=== PATIENT | female | born 1975 | race Caucasian/White ===

== ENCOUNTER 2020-11-12 10:27 | Outpatient (CLI) | payer OTHER, SELFPAY | END 2020-11-12 10:28 | disposition home or self-care (01) | LOC: ANHSURGERY 10:33 | PROVIDERS: PCP Nurse Practitioner Adult Health; Visit Provider Urology | DX: Z01.812 Encounter for preprocedural laboratory examination (principal); N93.9 Abnormal uterine and vaginal bleeding, unspecified | CPT/HCPCS: 87086 ==

== ENCOUNTER → 2020-11-18 00:52 | Outpatient (CLI) | payer OTHER, SELFPAY ==
[2020-11-18 17:24] LABS: SARS-CoV-2 RNA PCR Negative
== END ==
PROVIDERS: PCP Nurse Practitioner Adult Health; Visit Provider Urology
DX: Z01.812 Encounter for preprocedural laboratory examination (principal); Z20.822 Contact with and (suspected) exposure to COVID-19
CPT/HCPCS: C9803; U0003; U0005

== ENCOUNTER 2020-11-21 00:26 | Day surgery (SDC) | payer OTHER, SELFPAY ==
[2020-06-26 15:18] VITALS: BMI 19.1
[2020-11-10 15:04] VITALS: BMI 19.1
--- NOTE | 2020-11-15 10:17 | PM.IMHP ---
H&P: HPI History of Present Illness Date/Time: 11/15/20 10:17 45-year-old stress urinary incontinence. She has pelvic organ prolapse on exam which is not bothersome Chief Complaint: stress incontinence Review of Systems Review of Systems: All systems reviewed & are unremarkable except as noted in HPI and below [facility] Family History Family History (Updated 11/15/20 @ 10:18 by Richar Hallman MD) Other Carcinoma of colon Social History Social History Smoking status: Never smoker Second hand tobacco smoke exposure: No Alcohol intake: current Substance use: never Substance use type: does not use Spiritual care concerns: No Meds Home Medications and Allergies Home Medications Medication Instructions Recorded Confirmed Type cyanocobalamin (vitamin B-12) 1,000 mcg PO DAILY 06/26/20 11/10/20 History zoyvbzgsegwo-fww-xgoi-FA-vit K 1 tablet PO DAILY 06/26/20 11/10/20 History [One Daily Women's] Allergies Allergy/AdvReac Type Severity Reaction Status Date / Time No Known Allergies Allergy Unverified 11/10/20 14:56 Exam Narrative: Exam Narrative: urethral hypermobility, 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, 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 Const: General: cooperative and healthy appearing HENMT: Head: normal to inspection Eyes: General: appearance normal, both eyes and all related structures Chest: Chest palpation & inspection: normal inspection of the chest Resp: Effort & Inspection: normal respiratory effort and able to speak in complete sentences GI: Inspection: normal to inspection Back/Spine/Pelvis: Back: no CVA tenderness Skin: General skin exam: normal color Neuro: General: patient oriented x3 Assessment and Plan Assessment and plan (1) ROMI (stress urinary incontinence, female): Code(s): N39.3 - Stress incontinence (female) (male) Status: Acute Assessment and Plan: urethral sling
--- NOTE | 2020-11-20 16:20 | P.PNAN_ITS ---
Anes - Initial Pre Proc Eval Procedure: Operation Date: 11/21/20 10:45 Proposed Procedures p Urethral Sling - Richar Hallman MD Date/Time: 11/20/20 16:20 Surgeon: Richar Hallman MD Pre Op Diagnosis: stress incontinence Patient Data Age: 45 Gender: F Height: 1.65 m Weight: 52.2 kg Allergies Allergy/AdvReac Type Severity Reaction Status Date / Time No Known Allergies Allergy Unverified 11/21/20 09:22 Home Medications Medication Instructions Recorded Confirmed Type cyanocobalamin (vitamin B-12) 1,000 mcg PO DAILY 06/26/20 11/21/20 History hpzzmwpokgen-gfz-btau-FA-vit K 1 tablet PO DAILY 06/26/20 11/21/20 History [One Daily Women's] Patient hx anesthesia problems: none Family hx anesthesia problems: none [facility] Family History Family History (Updated 11/15/20 @ 10:18 by Richar Hallman MD) Other Carcinoma of colon Social History Social History Smoking status: Never smoker Second hand tobacco smoke exposure: No Alcohol intake: current Alcohol use details: STATES ONE DRINK PER MONTH Substance use: never Substance use type: does not use Living arrangements: with family Spiritual care concerns: No Anes - Eval Final PreProcedure Day of Procedure 11/20/20 16:20 Patient weight: normal Heart: regular rate and rhythm Lungs: clear to auscultation and normal air movement Airway: Mallampati scale class II Neurological: alert and oriented Last oral intake: >/= 8 hours ASA classification: I Emergent: no Anesthetic plan: proceed Anesthesia type and monitoring: general GIVS and LMA Informed Consent: The patient's anesthetic plan and its attendant risks and benefits were discussed with the patient/family/POA. Questions were solicited and answers provided to the satisfaction of the patient/family/POA.
--- NOTE | 2020-11-21 07:17 | WPDHPUPDATE1 ---
History and Physical Update Update Date/Time: 11/21/20 07:17 History and Physical has been reviewed, including an updated exam of the patient. There are NO changes in the patient's condition. Risks, benefits, and alternatives have been discussed and questions answered. Patient agrees to proceed with procedure.
[2020-11-21 08:52] VITALS: BP 142/76; PULSE 91; RESP 18; TEMP 36.1; O2SAT 100
[2020-11-21] MEDS: LACTATED RINGERS 1,000 ML 30 ML IV CONT ×2 (09:16→11:01)
[2020-11-21] MEDS: ceFAZolin 2 GM/D5W 50 ML 2 GM/50 ML BAG IVPB (10:29)
[2020-11-21] MEDS: BUPIVACAINE/EPINEPHRINE 0.25% 10 ML VIAL INFILTRATE (10:48)
[2020-11-21 11:01] VITALS: BP 74/38; PULSE 77; RESP 14; O2SAT 96
--- NOTE | 2020-11-21 11:07 | W.PM.PROC2 ---
Procedure Note - Detailed Date of Procedure 11/21/20 Pre-op Diagnosis stress incontinence Post-op Diagnosis same Procedure Performed Urethral sling, cystoscopy Surgeon Richar Hallman MD Anesthesia MAC and local Indications 45-year-old with symptomatic stress incontinence who desires correction. Findings Uncomplicated urethral sling Description of Procedure She has correctly identified. Informed consent obtained. She from the operating room. She was given mac anesthesia. She was prepped and draped in a sterile fashion in the dorsal lithotomy position. Time-out performed. I placed Blas catheter. I anesthetized the anterior vaginal wall of the mid urethra I anesthetized inner thigh incisions and made those incisions. At the mid urethra and dissected out laterally taking great care to not injure the reason vaginal wall. I passed the helical trocars. I did this 1st on the left. The on the right. I connected the sling to the trocars. I brought out the thigh incision. I tensioned the sling appropriately. I cut and the plastic sheaths. I then closed the incision with 2 0 Vicryl. On cystoscopy she had no bladder abnormalities. There is no surgical artifact in the bladder or urethra. I cut the excess sling material. Closed incision with glue. He was awakened transferred to PACU in stable condition. Implants urethral sling Estimated Blood Loss 30 Drains No Packing No Pathology none sent Complications No immediate complications Condition stable Disposition PACU
--- NOTE | 2020-11-21 11:23 | SUR.PHASEII ---
Anesthesia stayed at the bedside with patient and treated low BP.
[2020-11-21 11:30] VITALS: BP 97/59; PULSE 72; O2SAT 100
[2020-11-21 12:00] VITALS: BP 116/74; PULSE 78
== END 2020-11-21 12:28 | disposition home or self-care (01) ==
PROVIDERS: PCP Nurse Practitioner Adult Health; Visit Provider Urology
PROC: (CPT 57288; principal; 2020-11-21 10:45)
DX: N39.3 Stress incontinence (female) (male) (principal); N81.89 Other female genital prolapse
CPT/HCPCS: 57288; 87086; A9270; C1771; C9803; J0131; J0690; J1100; J1885; J2250; J2405; J2704; J3010; J7030; J7120; U0003; U0005

== ENCOUNTER 2023-04-15 10:47 | Outpatient (CLI) | payer OTHER, SELFPAY ==
[2023-04-15 13:55] LABS: Basophils Absolute Auto 0.1 K/mm3 (0.0-0.1); Basophils Percent Auto 1.8 % (0.2-1.2); Eosinophils Absolute Auto 0.1 K/mm3 (0-0.3); Eosinophils Percent Auto 2.2 % (0-4.4); Hematocrit 42.9 % (37.0-47.0); Hemoglobin 13.6 g/dL (12.0-15.0); Immature Granulocyte Absolute 0.01 K/mm3 (0.00-0.031); Immature Granulocyte Percent A 0.2 % (0-0.5); Lymphocytes Absolute Auto 1.78 K/mm3 (0.9-3.2); Lymphocytes Percent Auto 35.1 % (18.3-44.2); Mean Corpuscular HGB Conc 31.7 g/dl (32-36); Mean Corpuscular Hemoglobin 29.5 pg (26-34); Mean Corpuscular Volume 93.1 fl (80-100); Monocytes Absolute Auto 0.5 K/mm3 (0.1-0.6); Monocytes Percent Auto 9.5 % (2.6-8.5); Neutrophils Absolute Auto 2.6 K/mm3 (1.3-6.7); Neutrophils Percent Auto 51.2 % (45.5-73.1); Platelet Count Result 159 k/mm3 (150-375); Red Blood Count 4.61 M/mm3 (4.2-5.4); Red Cell Distribution Width 11.8 % (11.5-14.5); White Blood Count 5.1 K/mm3 (4.5-10.0)
[2023-04-15 14:05] LABS: Alanine Aminotransferase 21 U/L (6-35); Albumin Level 4.4 g/dL (3.5-5.1); Alkaline Phosphatase 47 U/L (38-126); Anion Gap 8 mmol/L (8-16); Aspartate Amino Transferase 36 U/L (14-36); Bilirubin,Total 0.9 mg/dL (0.2-1.3); Blood Urea Nitrogen 17 mg/dL (7-17); Calcium 9.5 mg/dL (8.4-10.2); Carbon Dioxide 29 mmol/L (22-30); Chloride 101 mmol/L (98-107); Cholesterol 174 mg/dL (0-200); Estimated Glomerular Filt Rate > 60; Glucose 90 mg/dL (65-110); HDL Direct 70 mg/dL; Potassium 4.7 mmol/L (3.4-5.0); Sodium 138 mmol/L (137-145); Triglycerides 60 mg/dL (<150)
[2023-04-15 14:16] LABS: LDL Cholesterol Direct 72 mg/dL
[2023-04-15 14:56] LABS: Vitamin B12 > 1000.0 pg/mL (239-931)
[2023-04-15 18:03] LABS: Vitamin D 25 Hydroxy 34.1 ng/mL
== END 2023-04-15 10:48 | disposition home or self-care (01) ==
LOC: ANHGOSHLAB 10:49
PROVIDERS: PCP Internal Medicine; Visit Provider Clinical Nurse Specialist
DX: N93.9 Abnormal uterine and vaginal bleeding, unspecified (principal); Z13.220 Encounter for screening for lipoid disorders; Z13.228 Encounter for screening for other metabolic disorders; E53.8 Deficiency of other specified B group vitamins; E55.9 Vitamin D deficiency, unspecified
CPT/HCPCS: 36415; 80053; 80061; 82306; 82607; 84443; 85025

== ENCOUNTER 2023-06-30 07:05 | Day surgery (SDC) | payer OTHER, SELFPAY ==
[2023-05-02 11:32] VITALS: BMI 20.6
[2023-06-14 11:25] VITALS: BMI 20.4
[2023-06-30 08:17] VITALS: BP 124/67; PULSE 80; RESP 12; TEMP 36.3; O2SAT 100
[2023-06-30] MEDS: LACTATED RINGERS 1,000 ML 150 ML IV CONT (08:30)
--- NOTE | 2023-06-30 08:42 | WPDANESEPPF ---
Anes - Initial Pre Proc Eval Procedure: Operation Date: 06/30/23 09:30 Proposed Procedures p Screening Colonoscopy - Haresh Burnham MD Date/Time: 06/30/23 08:42 Surgeon: Haresh Burnham MD Pre Op Diagnosis: Neoplasm Screening Patient Data Age: 47 Gender: F Height: 1.63 m Weight: 52.7 kg Last Vital Signs Temp 36.3 C L 06/30/23 08:17 Pulse 80 06/30/23 08:17 Resp 12 06/30/23 08:17 BP 124/67 06/30/23 08:17 Pulse Ox 100 06/30/23 08:17 O2 Del Method Room Air 06/30/23 08:17 Allergies Allergy/AdvReac Type Severity Reaction Status Date / Time No Known Allergies Allergy Verified 06/30/23 08:13 Home Medications Medication Instructions Recorded Confirmed Type cyanocobalamin (vitamin B-12) 1,000 mcg PO DAILY 06/26/20 06/30/23 History 1,000 mcg capsule multivit with minerals-iron 18 1 tablet PO DAILY 06/26/20 06/30/23 History mg-folic ac 400 mcg-vit K 25 mcg tablet (One Daily Women's) Patient hx anesthesia problems: none Family hx anesthesia problems: none Results Review: All pre-operative results and documents have been reviewed as part of the pre-operative evaluation. [facility] Past Medical History Medical History Bartholin's gland cyst Bartholin Gland abscess 12/12/2012 Thrombocytopenia with in 2009 Surgical History Surgical History History of bladder surgery sling 2020 Status post creation of urethral sling by suprapubic approach Family History Family History Grandparent Carcinoma of colon maternal grandparent Mother Hypertension Grandparent Malignant neoplasm of prostate paternal grandparent Other Anxiety child Social History Social History Smoking status: Never smoker Second hand tobacco smoke exposure: No Alcohol intake: current Alcohol use details: socially Substance use: never Substance use type: does not use Lack of Transportation: No Lack of Food: Never True Current Housing: I Have Housing Concerned About Future Housing: No Difficulty Paying Gas/Electric Bills: No Difficulty Paying for Meds: No Currently Unemployed: No Education: Bachelor's Degree Difficulty w/ Childcare or Family Care: No Living arrangements: with family Occupation/Education: occupation Gender identity (if verbalized by the patient): Female Sexual Orientation (if Verbalized by the Patient): Straight or Heterosexual Spiritual care concerns: No Anes - Eval Final PreProcedure Day of Procedure 06/30/23 08:42 Patient weight: thin Heart: regular rate and rhythm Lungs: clear to auscultation Airway: Mallampati scale class II Neurological: alert and oriented Last oral intake: >/= 8 hours ASA classification: I Emergent: no Anesthetic plan: proceed Anesthesia type and monitoring: general GIVS and standard monitoring Results Review: All pre-operative results and documents have been reviewed as part of the pre-operative evaluation. Informed Consent: The patient's anesthetic plan and its attendant risks and benefits were discussed with the patient/family/POA. Questions were solicited and answers provided to the satisfaction of the patient/family/POA.
--- NOTE | 2023-06-30 09:26 | PM.HPGS ---
History of Present Illness History of Present Illness Consent: Risks, benefits, and alternatives have been discussed and questions answered. Patient agrees to proceed with procedure. Chief complaint: Neoplasm Screening Narrative: Naya Jain is a 47 year old female presents for screening colonoscopy. Patient's current weight appetite and some are normal. Patient denies abdominal pain. She has had no bleeding. Family history is significant her father had colon polyps. Review of Systems Review of Systems: Review of systems is noncontributory. [facility] Past Medical History Medical History Bartholin's gland cyst Bartholin Gland abscess 12/12/2012 Thrombocytopenia with in 2009 Surgical History Surgical History History of bladder surgery sling 2020 Status post creation of urethral sling by suprapubic approach Family History Family History Grandparent Carcinoma of colon maternal grandparent Mother Hypertension Grandparent Malignant neoplasm of prostate paternal grandparent Other Anxiety child Social History Social History Smoking status: Never smoker Second hand tobacco smoke exposure: No Alcohol intake: current Alcohol use details: socially Substance use: never Substance use type: does not use Lack of Transportation: No Lack of Food: Never True Current Housing: I Have Housing Concerned About Future Housing: No Difficulty Paying Gas/Electric Bills: No Difficulty Paying for Meds: No Currently Unemployed: No Education: Bachelor's Degree Difficulty w/ Childcare or Family Care: No Living arrangements: with family Occupation/Education: occupation Gender identity (if verbalized by the patient): Female Sexual Orientation (if Verbalized by the Patient): Straight or Heterosexual Spiritual care concerns: No Meds Home Medications and Allergies Home Medications Medication Instructions Recorded Confirmed Type cyanocobalamin (vitamin B-12) 1,000 mcg PO DAILY 06/26/20 06/30/23 History 1,000 mcg capsule multivit with minerals-iron 18 1 tablet PO DAILY 06/26/20 06/30/23 History mg-folic ac 400 mcg-vit K 25 mcg tablet (One Daily Women's) Allergies Allergy/AdvReac Type Severity Reaction Status Date / Time No Known Allergies Allergy Verified 06/30/23 08:13 Vital Signs Vital Signs - 24 hr 06/30/23 08:17 Temperature 97.4 F L Pulse Rate 80 Respiratory Rate 12 Blood Pressure 124/67 Pulse Oximetry 100 Oxygen Delivery Room Air Exam Narrative: Physical exam reveals patient id vital signs stable. HEENT exam is unremarkable. Patient is anicteric. Lungs are clear to auscultation and to percussion is without murmur or extra sounds. Abdomen bowel sounds are present soft nontender with no organomegaly digital external rectal exam is normal. Assessment and Plan Assessment and plan (1) Screening for colon cancer: Code(s): Z12.11 - Encounter for screening for malignant neoplasm of colon Status: Acute Assessment and Plan: Patient presents today for screening colonoscopy. She does report that her father had colon polyps. Further recommendations may be given after endoscopy.
[2023-06-30 10:04] VITALS: BP 99/63; PULSE 82; RESP 16; O2SAT 100
[2023-06-30 10:14] VITALS: BP 101/65; PULSE 77; RESP 16; O2SAT 100
[2023-06-30 10:24] VITALS: BP 116/72; PULSE 77; RESP 14; O2SAT 100
--- NOTE | 2023-06-30 10:38 | WPDANESPN ---
Anes - Prog Note Post-Op Date/Time: 06/30/23 10:38 Cardiovascular status: normal Respiratory status: normal Airway patency: baseline Mental status: baseline Post-Op hydration status: normal Vital Signs: Last Vital Signs Temp 36.3 C L 06/30/23 08:17 Pulse 77 06/30/23 10:24 Resp 14 06/30/23 10:24 BP 116/72 06/30/23 10:24 Pulse Ox 100 06/30/23 10:24 O2 Del Method Room Air 06/30/23 10:24 Pain Score (VAS): 0/10 I/O: Intake & Output 06/29/23 06/30/23 06/30/23 23:59 07:59 15:59 Intake Total 900 Balance 900 Patient Feedback: Patient satisfied with anesthetic care.
== END 2023-06-30 10:40 | disposition home or self-care (01) ==
PROVIDERS: PCP Clinical Nurse Specialist; Visit Provider Internal Medicine Gastroenterology
PROC: 0DJD8ZZ Inspection of Lower Intestinal Tract, Via Natural or Artificial Opening Endoscopic (ICD-10-PCS; CPT 45378; principal; 2023-06-30 09:30)
DX: Z12.11 Encounter for screening for malignant neoplasm of colon (principal); K64.8 Other hemorrhoids; Z83.718 Family history of other colon polyps
CPT/HCPCS: 45378

== ENCOUNTER 2024-04-16 11:51 | Outpatient (CLI) | payer OTHER, SELFPAY ==
[2024-04-16 19:11] LABS: Basophils Absolute Auto 0.1 K/mm3 (0.0-0.1); Basophils Percent Auto 0.9 % (0.2-1.2); Eosinophils Absolute Auto 0.1 K/mm3 (0-0.3); Eosinophils Percent Auto 0.8 % (0-4.4); Hematocrit 42.2 % (37.0-47.0); Hemoglobin 13.8 g/dL (12.0-15.0); Immature Granulocyte Absolute 0.02 K/mm3 (0.00-0.031); Immature Granulocyte Percent A 0.2 % (0-0.5); Lymphocytes Absolute Auto 1.98 K/mm3 (0.9-3.2); Lymphocytes Percent Auto 21.9 % (18.3-44.2); Mean Corpuscular HGB Conc 32.7 g/dl (32-36); Mean Corpuscular Hemoglobin 30.1 pg (26-34); Mean Corpuscular Volume 91.9 fl (80-100); Mean Platelet Volume 11.1 fl (7.4-10.4); Monocytes Absolute Auto 0.7 K/mm3 (0.1-0.6); Monocytes Percent Auto 7.4 % (2.6-8.5); Neutrophils Absolute Auto 6.2 K/mm3 (1.3-6.7); Neutrophils Percent Auto 68.8 % (45.5-73.1); Platelet Count Result 185 k/mm3 (150-375); Red Blood Count 4.59 M/mm3 (4.2-5.4); Red Cell Distribution Width 11.9 % (11.5-14.5)
[2024-04-16 19:31] LABS: Alanine Aminotransferase 12 U/L (6-35); Albumin Level 4.5 g/dL (3.5-5.1); Alkaline Phosphatase 52 U/L (38-126); Anion Gap 6 mmol/L (4-12); Aspartate Amino Transferase 29 U/L (14-36); Bilirubin,Total 0.5 mg/dL (0.2-1.3); Blood Urea Nitrogen 20 mg/dL (7-17); Calcium 9.4 mg/dL (8.4-10.2); Carbon Dioxide 28 mmol/L (22-30); Chloride 103 mmol/L (98-107); Cholesterol 173 mg/dL (0-200); Estimated Glomerular Filt Rate > 60; Glucose 83 mg/dL (65-110); HDL Direct 67 mg/dL; Potassium 4.7 mmol/L (3.4-5.0); Sodium 137 mmol/L (137-145); Triglycerides 67 mg/dL (<150)
[2024-04-16 19:42] LABS: LDL Cholesterol Direct 69 mg/dL
[2024-04-16 21:45] LABS: Vitamin D 25 Hydroxy 77.1 ng/mL
== END 2024-04-16 11:52 | disposition home or self-care (01) ==
LOC: ANHGOSHLAB 11:52
PROVIDERS: PCP Clinical Nurse Specialist; Visit Provider Clinical Nurse Specialist
DX: E55.9 Vitamin D deficiency, unspecified (principal); E53.8 Deficiency of other specified B group vitamins; Z13.220 Encounter for screening for lipoid disorders; Z13.228 Encounter for screening for other metabolic disorders; D69.6 Thrombocytopenia, unspecified
CPT/HCPCS: 36415; 80053; 80061; 82306; 82607; 84443; 85025

== ENCOUNTER 2024-10-03 14:22 | Outpatient (CLI) | payer OTHER, SELFPAY ==
--- NOTE | ~2024-10-03 | MM_ITS ---
EXAMINATION: MM screening [facility] BI w valorie HISTORY: Screening TECHNIQUE: Craniocaudal and mediolateral oblique 3-D tomosynthesis images were obtained and synthetic 2-D images were generated. CAD analysis was submitted and interpreted. COMPARISON: Comparison to multiple prior studies sequentially, with oldest reviewed study dated 01/17. BREAST PARENCHYMAL COMPOSITION: Dense: The breasts are extremely dense, which lowers the sensitivity of mammography. FINDINGS: There is no evidence of suspicious mass, calcification, or architectural distortion to sugg est malignancy in either breast. There has been no suspicious interval change. IMPRESSION: 1. No mammographic evidence of malignancy. 2. Recommend routine screening mammography in one year. BI-RADS Category 1: Negative Reviewed, dictated and finalized at location A.
== END 2024-10-03 14:23 | disposition home or self-care (01) ==
LOC: MICIMG 14:23
PROVIDERS: PCP Clinical Nurse Specialist; Visit Provider Obstetrics & Gynecology
DX: Z12.31 Encounter for screening mammogram for malignant neoplasm of breast (principal)
CPT/HCPCS: 77063; 77067